=== PATIENT | female | born 1955 | race Caucasian/White ===

== ENCOUNTER 2023-06-02 12:40 | Outpatient (OUT) | payer MEDICARE, SELFPAY ==
--- NOTE | 2023-06-02 13:10 | XR_ITS ---
[address] [address] Patient Name: EDIN VILLEDA MRN: [id number] date: 1955 Sex: F Assigned Patient Location: [facility] Current Patient Location: [facility] Accession/Order Number: [id number] Exam Date: 06/02/2023 13:00 Report Date: 06/02/2023 13:23 At the request of: FABIANA ARGUETA Procedure: XR DEXA axial skeleton EXAMINATION: XR DEXA axial skeleton HISTORY: Estrogen Deficiency E28.39 COMPARISON: DEXA bone densitometry 05/23/2021 TECHNIQUE: Dual-energy X-ray absorptiometry (DXA) was performed. FINDINGS: SPINE ANALYSIS: Average bone mineral density is 1.017 g/cm2. T-score (standard deviation relative to young adult mean): -1.4 . +3.5% change since prior study. HIP ANALYSIS: Lowest bone mineral density is within the right femoral neck, 0.712 g/cm2. T-score (standard deviation relative to young adult mean): -2.3 . -0.2% change since prior study. XR/XR DEXA axial skeleton IMPRESSION: [employer] Classification: Osteopenia - Moderate Fracture Risk Electronically authenticated by: SHAHAB HAGEN Date: 06/02/2023 13:23
--- NOTE | 2023-06-02 13:10 | MM_ITS ---
Patient Name: EDIN VILLEDA MR#: [id number] : 1955 Exam Date: 06/02/2023 Ordering Doctor: DR FABIANA ARGUETA M.D. RADIOLOGY REPORT PROCEDURE: MM TOMOSYNTHESIS SCREENING BI COMPARISON: MG MAMM SCREEN 3D HERMINIA CAD, 12/25/2020. MG MAMM SCREEN HERMINIA W CAD, 02/18/2018. MG MAMM HER[place] DIAG W CAD DIG, 02/21/2016. MAMMO HERMINIA SCREEN, 10/07/2004. INDICATIONS: Screening Calculator Name NCI Breast Cancer Risk Assessment Tool 5 Year Breast Cancer Risk 3.20% Lifetime Breast Cancer Risk 10.10% Personal Breast Cancer No Personal Ovarian Cancer No Treatments None Family Cancers Sister with breast cancer at age 76; Father with stomach cancer at age 50. LOCATION: [facility] BREAST COMPOSITION: Heterogeneously dense,which may obscure small masses. FINDINGS: DIAGNOSTIC CATEGORY 1--NEGATIVE. RIGHT BREAST: No significant suspicious finding. No significant change has occurred. LEFT BREAST: No significant suspicious finding. No significant change has occurred. RECOMMENDATIONS: ROUTINE MAMMOGRAM AND CLINICAL EVALUATION IN 12 MONTHS. PLEASE NOTE: A NORMAL MAMMOGRAM DOES NOT EXCLUDE THE POSSIBILITY OF BREAST CANCER. A CLINICALLY SUSPICIOUS PALPABLE LUMP SHOULD BE BIOPSIED. Dictated by: Kenneth Marino M.D. on 06/03/2023 at 08:52 Approved by: Kenneth Marino M.D. on 06/03/2023 at 08:56
== END 2023-06-02 12:41 | disposition home or self-care (01) ==
LOC: MAMMO 12:40
PROVIDERS: PCP Family Medicine; Visit Provider Family Medicine
DX: Z12.31 Encounter for screening mammogram for malignant neoplasm of breast (principal); E28.39 Other primary ovarian failure; M85.80 Other specified disorders of bone density and structure, unspecified site; Z80.3 Family history of malignant neoplasm of breast; Z80.0 Family history of malignant neoplasm of digestive organs
CPT/HCPCS: 77063; 77067; 77080

== ENCOUNTER 2024-06-13 13:00 | Outpatient (OUT) | payer MEDICARE, SELFPAY ==
--- NOTE | 2024-06-13 13:10 | MM_ITS ---
Patient Name: EDIN VILLEDA MR#: [id number] : 1955 Exam Date: 06/13/2024 Ordering Doctor: DR FABIANA ARGUETA M.D. RADIOLOGY REPORT PROCEDURE: MM TOMOSYNTHESIS SCREENING BI COMPARISON: MM TOMOSYNTHESIS SCREENING BI, 06/02/2023. MG MAMM SCREEN 3D HERMINIA CAD, 12/25/2020. MG MAMM SCREEN HERMINIA W CAD, 02/18/2018. MAMMO HERMINIA SCREEN, 10/07/2004. INDICATIONS: Screening Calculator Name NCI Breast Cancer Risk Assessment Tool 5 Year Breast Cancer Risk 3.20% Lifetime Breast Cancer Risk 9.70% Personal Breast Cancer No Personal Ovarian Cancer No Treatments None Family Cancers Sister with breast cancer at age 76; Father with stomach cancer at age 50. LOCATION: [facility] BREAST COMPOSITION: The breasts are heterogeneously dense,which may obscure small masses. FINDINGS: DIAGNOSTIC CATEGORY 1--NEGATIVE. RIGHT BREAST: No significant suspicious finding. No significant change has occurred. LEFT BREAST: No significant suspicious finding. No significant change has occurred. RECOMMENDATIONS: ROUTINE MAMMOGRAM AND CLINICAL EVALUATION IN 12 MONTHS. PLEASE NOTE: A NORMAL MAMMOGRAM DOES NOT EXCLUDE THE POSSIBILITY OF BREAST CANCER. A CLINICALLY SUSPICIOUS PALPABLE LUMP SHOULD BE BIOPSIED. Dictated by: Kenneth Marino M.D. on 06/13/2024 at 16:38 Approved by: Kenneth Marino M.D. on 06/13/2024 at 16:41
== END 2024-06-13 13:01 | disposition home or self-care (01) ==
LOC: MAMMO 13:01
PROVIDERS: PCP Family Medicine; Visit Provider Family Medicine
DX: Z12.31 Encounter for screening mammogram for malignant neoplasm of breast (principal); Z80.3 Family history of malignant neoplasm of breast; Z80.0 Family history of malignant neoplasm of digestive organs
CPT/HCPCS: 77063; 77067